=== PATIENT | female | born 1955 | race Caucasian/White ===

== ENCOUNTER → 2019-06-30 | Outpatient (CLI) | payer OTHER | END | disposition home or self-care (01) | LOC: CFH 11:01 | PROVIDERS: ATTEND Nurse Practitioner Family | DX: Z12.31 Encounter for screening mammogram for malignant neoplasm of breast (principal) | CPT/HCPCS: 77063; 77067 ==

== ENCOUNTER 2019-11-19 18:13 | Emergency (ER) | payer OTHER ==
[~2019-11-19] VITALS: Ht 172.7 cm; Wt 88.5 kg
--- NOTE | 2019-11-19 18:33 | NUR ---
first contact with pt. pt states "We were cleaning a room and I tripped on a sequential cord, I fell and hit my head and now I have a big goose egg". denies loc, not on blood thinners, neck pain. pt's aox4. resps even and unlabored. bp/spo2 monitors in place. call light within reach. [employer].
--- NOTE | 2019-11-19 18:51 | NUR ---
report given to yayo gee.
--- NOTE | 2019-11-19 18:53 | NUR ---
REPORT RECEIVED FROM MARV CURRAN. PT RESTING ON GURKIM. DENIES FURTHER NEEDS AT THIS TIME. PT UPDATED ON POC. CALL LIGHT WITHIN REACH. MONITORING IN PLACE.
[2019-11-19 19:09] VITALS: BP 132/51
== END 2019-11-19 19:30 | disposition home or self-care (01) ==
LOC: ED 19:20
DX: S09.90XA Unspecified injury of head, initial encounter (principal); W18.30XA Fall on same level, unspecified, initial encounter; Y93.89 Activity, other specified; Y92.69 Other specified industrial and construction area as the place of occurrence of the external cause; Y99.0 Civilian activity done for income or pay
CPT/HCPCS: 99281

== ENCOUNTER → 2020-05-05 | Outpatient (CLI) | payer OTHER ==
[2020-05-05 08:55] LABS: HCT (SEDRATE) 40.6 % (34.6-47.8)
[2020-05-05 09:07] LABS: ALANINE AMINOTRANSFERASE 56 U/L (12-78); ALBUMIN 3.5 g/dL (3.4-5.0); ANION GAP 8 mmol/L (5-15); CHLORIDE 107 mmol/L (98-107); CHOLESTEROL, TOTAL 237 mg/dL (140-239); CREATININE 0.79 mg/dL (0.55-1.02)
[2020-05-05 09:09] LABS: ALKALINE PHOSPHATASE 165 U/L (45-117); BILIRUBIN,TOTAL 0.3 mg/dL (0.2-1.0); CHOL/HDL RATIO 2.7; HDL CHOL % 37 % (28-40); HDL CHOLESTEROL (DIRECT) 87 mg/dL (40-60); LDL CHOLESTEROL,CALCULATED 138 mg/dL (54-169); LDL/HDL RATIO 1.6 (0.5-3.0); TOTAL PROTEIN 6.5 g/dL (6.4-8.2); TRIGLYCERIDES 60 mg/dL (50-200); VLDL CHOLESTEROL 12 mg/dL (0-25)
== END | disposition home or self-care (01) ==
LOC: LAB 08:32
PROVIDERS: ATTEND Nurse Practitioner Family
DX: M54.9 Dorsalgia, unspecified (principal); M79.646 Pain in unspecified finger(s); I10 Essential (primary) hypertension
CPT/HCPCS: 36415; 80053; 80061; 84550; 85651; 86038; 86430

== ENCOUNTER → 2020-07-26 | Outpatient (CLI) | payer OTHER | END | disposition home or self-care (01) | LOC: CFH 09:51 | PROVIDERS: ATTEND Nurse Practitioner Family | DX: Z12.31 Encounter for screening mammogram for malignant neoplasm of breast (principal) | CPT/HCPCS: 77063; 77067 ==